=== PATIENT | female | born 2000 | race Caucasian/White ===

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

== ENCOUNTER 2020-11-09 21:08 | Emergency (ER) | payer MEDICAID, OTHER ==
[2020-11-09] MEDS ORDERED: ONDANSETRON 4 MG/2 ML VIAL IVP STA (21:20)
[2020-11-09] MEDS ORDERED: ONDANSETRON ODT 4 MG TABLET TL STA (21:20)
[2020-11-09] MEDS ORDERED: SODIUM CHLORIDE 0.9% 1,000 ML IV STA ×2 (21:20→22:14)
[2020-11-09 21:28] LABS: BASOPHILS # (AUTO) 0.1 10^3/uL (0.0-0.1); BASOPHILS % (AUTO) 0.8 %; EOSINOPHILS % (AUTO) 0.5 %; HCT - HEMATOCRIT 36.9 % (37.0-47.0); HGB - HEMOGLOBIN 12.4 g/dL (12.0-16.0); LYMPHOCYTES # (AUTO) 0.9 10^3/uL (1.5-3.5); LYMPHOCYTES % (AUTO) 14.1 %; MEAN CORPUSCULAR HEMOGLOBIN 30.1 pg (27.0-31.0); MEAN CORPUSCULAR HGB CONC 33.6 g/dL (32.0-36.0); MEAN CORPUSCULAR VOLUME 89.6 fL (81.0-99.0); MEAN PLATELET VOLUME 9.8 fL (7.9-10.8); MONOCYTES # (AUTO) 0.8 10^3/uL (0.0-1.0); MONOCYTES % (AUTO) 12.6 %; NEUTROPHILS # (AUTO) 4.4 10^3/uL (1.5-6.6); NEUTROPHILS % (AUTO) 71.7 %; PLT - PLATELET COUNT 294 10^3/uL (130-450); RED BLOOD COUNT 4.12 10^6/uL (4.20-5.40); RED CELL DISTRIBUTION WIDTH 11.7 % (12.0-15.0); WHITE BLOOD COUNT 6.1 x10^3/uL (4.8-10.8)
[2020-11-09 21:43] LABS: ALBUMIN 4.5 g/dL (3.2-5.5); ALBUMIN/GLOBULIN RATIO 1.6 (1.0-2.2); CALCIUM 9.2 mg/dL (8.5-10.3); CREATININE 1.1 mg/dL (0.4-1.0); POTASSIUM 3.3 mmol/L (3.5-5.0); TOTAL PROTEIN 7.4 g/dL (6.7-8.2)
[2020-11-09] MEDS ORDERED: METOCLOPRAMIDE 10 MG/2 ML VIAL IVP STA (22:14)
[2020-11-09] MEDS ORDERED: FAMOTIDINE 20 MG/2 ML VIAL IVP STA (22:14)
[2020-11-09 23:16] VITALS: BP 120/67
[2020-11-09] MEDS ORDERED: METOCLOPRAMIDE 10 MG TABLET PO STA (23:22)
--- NOTE | 2020-11-09 23:29 | ED Physician Documentation ---
PD HPI ABD PAIN - Stated complaint Stated Complaint: VOMITING/SUNBURN - Chief complaint Chief Complaint: Abd Pain - History obtained from History obtained from: Patient - Additional information Additional information: 20-year-old woman with No past medical history presents with nonbloody nonbilious nausea and vomiting starting today, with about 15 episodes. Patient states that she had a sunburn on Saturday and has not been drinking much since then. She felt fine but then developed the nausea today. Denies diarrhea, fever, does have chills. Review of Systems Ten Systems: 10 systems reviewed and negative Constitutional: reports: Chills, Myalgias, Fatigue. denies: Fever Cardiac: denies: Chest pain / pressure Respiratory: denies: Dyspnea, Cough GI: reports: Nausea, Vomiting. denies: Abdominal Pain, Diarrhea : denies: Dysuria PD PAST MEDICAL HISTORY - Past Surgical History Past Surgical History: Yes HEENT: Tonsil/Adenoidectomy - Present Medications Home Medications: Ambulatory Orders Medication Instructions Recorded Confirmed Cephalexin [Keflex] 500 mg PO Q6HR 7 Days capsule 10/21/14 Naphazoline HCl/Pheniramine 1 - 2 drops OP Q6HR PRN #10 ml 10/21/14 [Naphcon-A Eye Drops] Ondansetron Odt [Zofran Odt] 4 mg TL Q6H PRN #10 tablet 11/09/20 - Allergies Allergies/Adverse Reactions: Allergies Allergy/AdvReac Type Severity Reaction Status Date / Time No Known Drug Allergies Allergy Verified 11/09/20 21:14 - Social History Does the pt smoke?: No Smoking Status: Never smoker Does the pt drink ETOH?: No Does the pt have substance abuse?: No - Immunizations Immunizations are current?: Yes - POLST Patient has POLST: No PD ED PE NORMAL - Vitals Vital signs reviewed: Yes - General General: Alert and oriented X 3, No acute distress, Well developed/nourished - HEENT HEENT: Atraumatic, PERRL, EOMI - Neck Neck: Supple, no meningeal sign - Cardiac Cardiac: RRR - Respiratory Respiratory: No respiratory distress, Clear bilaterally - Abdomen Abdomen: Non tender, Non distended - Derm Derm: Normal color - Extremities Extremities: No deformity - Neuro Neuro: Alert and oriented X 3 - Psych Psych: Normal mood, Normal affect Results - Vitals Vitals: Vital Signs - 24 hr 06/30/21 06/30/21 06/30/21 21:11 21:27 23:16 Temperature 36.1 C L 37.2 C Heart Rate 76 95 80 Respiratory 18 21 16 Rate Blood Pressure 121/62 127/49 L 120/67 O2 Saturation 100 100 100 Oxygen O2 Source Room air - Labs Labs: Laboratory Tests 11/09/20 11/09/20 21:24 21:24 WBC 6.1 RBC 4.12 L Hgb 12.4 Hct 36.9 L MCV 89.6 MCH 30.1 MCHC 33.6 RDW 11.7 L Plt Count 294 MPV 9.8 Neut # (Auto) 4.4 Lymph # (Auto) 0.9 L [place] # (Auto) 0.8 Eos # (Auto) 0.0 Baso # (Auto) 0.1 Absolute Nucleated RBC 0.00 Nucleated RBC % 0.0 Sodium 135 Potassium 3.3 L Chloride 103 Carbon Dioxide 19 L Anion Gap 13.0 BUN 8 Creatinine 1.1 H Estimated GFR (MDRD) 63 L Glucose 115 H Calcium 9.2 Total Bilirubin 1.0 AST 25 ALT 27 Alkaline Phosphatase 56 Total Protein 7.4 Albumin 4.5 Globulin 2.9 Albumin/Globulin Ratio 1.6 Lipase 27 PD MEDICAL DECISION MAKING - ED course ED course: Patient is feeling better after symptomatic care. Covid swab sent given that she and her significant other unvaccinated against COVID-19. Education given and return precautions given. Patient will follow up with her primary doctor. Departure - Departure Disposition: 01 Home, Self Care Clinical Impression: Nausea and vomiting, Sunburn Condition: Stable Instructions: ED Nausea Vomiting Prescriptions: Ondansetron Odt [Zofran Odt] 4 mg TL Q6H PRN #10 tablet PRN Reason: Nausea / Vomiting Comments: You were seen in the emergency department for nausea and vomiting. Your labs did not show any significant abnormalities. You should make sure that you get lots of rest, try to hydrate with water and Pedialyte, and fill your prescription. Return to the emergency department if you have any new or worsening symptoms or other concerns. Follow-up with your primary doctor. Discharge Date/Time: 11/09/20 23:36
== END 2020-11-09 23:36 | disposition home or self-care (01) ==
LOC: ED 21:08
DX: R11.2 Nausea with vomiting, unspecified (principal); L55.9 Sunburn, unspecified; Z20.822 Contact with and (suspected) exposure to COVID-19
CPT/HCPCS: 36415; 80053; 83690; 85025; 87635; 96361; 96374; 96375; 99283; A9270; J2765

== ENCOUNTER 2021-02-17 08:16 | Emergency (ER) | payer MEDICAID ==
[2021-02-17] MEDS ORDERED: SODIUM CHLORIDE 0.9% 1,000 ML IV STA (08:33)
[2021-02-17] MEDS ORDERED: PROMETHAZINE INJ 25 MG in SODIUM CHLORIDE 0.9% 50 ML IV STA (08:33)
[2021-02-17 08:46] LABS: BASOPHILS % (AUTO) 0.7 %; EOSINOPHILS % (AUTO) 0.5 %; HCT - HEMATOCRIT 42.4 % (37.0-47.0); LYMPHOCYTES # (AUTO) 1.3 10^3/uL (1.5-3.5); LYMPHOCYTES % (AUTO) 23.4 %; MEAN CORPUSCULAR HEMOGLOBIN 30.2 pg (27.0-31.0); MEAN CORPUSCULAR VOLUME 91.6 fL (81.0-99.0); MEAN PLATELET VOLUME 10.2 fL (7.9-10.8); MONOCYTES # (AUTO) 0.3 10^3/uL (0.0-1.0); MONOCYTES % (AUTO) 5.5 %; NEUTROPHILS % (AUTO) 69.7 %; PLT - PLATELET COUNT 301 10^3/uL (130-450); RED BLOOD COUNT 4.63 10^6/uL (4.20-5.40); RED CELL DISTRIBUTION WIDTH 11.6 % (12.0-15.0); WHITE BLOOD COUNT 5.7 x10^3/uL (4.8-10.8)
[2021-02-17 08:56] LABS: ALBUMIN 4.8 g/dL (3.2-5.5); ALBUMIN/GLOBULIN RATIO 1.6 (1.0-2.2); BILIRUBIN,TOTAL 0.6 mg/dL (0.2-1.0); CALCIUM 9.7 mg/dL (8.5-10.3); CREATININE 1.1 mg/dL (0.4-1.0); POTASSIUM 3.5 mmol/L (3.5-5.0); TOTAL PROTEIN 7.8 g/dL (6.7-8.2)
--- NOTE | 2021-02-17 09:04 | ED Physician Documentation ---
PD HPI ABD PAIN - Stated complaint Stated Complaint: VOMITING - Chief complaint Chief Complaint: Abd Pain - History obtained from History obtained from: Patient - Additional information Additional information: 20-year-old woman had her wisdom teeth out 5 days ago. Subsequently was on hydrocodone and subsequently oxycodone both of which she has not had in 4 days and both of which were making her nauseous. She woke up abruptly at 3 AM this morning with epigastric pain and severe vomiting. No headache. She has been constipated. She does not think is likely. She does use marijuana of ten, but she says not daily. Review of Systems Ten Systems: 10 systems reviewed and negative Constitutional: reports: Chills, Sweats Nose: denies: Rhinorrhea / runny nose GI: reports: Abdominal Pain, Nausea, Vomiting, Constipation PD PAST MEDICAL HISTORY - Past Surgical History Past Surgical History: Yes HEENT: Tonsil/Adenoidectomy - Present Medications Home Medications: Ambulatory Orders Medication Instructions Recorded Confirmed Cephalexin [Keflex] 500 mg PO Q6HR 7 Days capsule 10/21/14 Naphazoline HCl/Pheniramine 1 - 2 drops OP Q6HR PRN #10 ml 10/21/14 [Naphcon-A Eye Drops] Ondansetron Odt [Zofran Odt] 4 mg TL Q6H PRN #10 tablet 11/09/20 Metoclopramide [Reglan] 10 mg PO Q6H PRN #20 tablet 02/17/21 Ondansetron Odt [Zofran] 4 mg TL Q6H PRN #10 tablet 02/17/21 Promethazine Supp [Phenergan Supp] 25 mg DC Q6H PRN #20 supp 02/17/21 - Allergies Allergies/Adverse Reactions: Allergies Allergy/AdvReac Type Severity Reaction Status Date / Time No Known Drug Allergies Allergy Verified 02/17/21 08:20 - Social History Does the pt smoke?: No Smoking Status: Never smoker Does the pt drink ETOH?: No Does the pt have substance abuse?: No - Immunizations Immunizations are current?: Yes - POLST Patient has POLST: No PD ED PE NORMAL - Vitals Vital signs reviewed: Yes - General General: Alert and oriented X 3, Other (retching, no vomiting) - HEENT HEENT: Pharynx benign - Neck Neck: Supple, no meningeal sign, No bony TTP - Cardiac Cardiac: RRR, No murmur - Respiratory Respiratory: No respiratory distress, Clear bilaterally - Abdomen Abdomen: Normal bowel sounds, Soft, Non tender - Back Back: No CVA TTP, No spinal TTP - Derm Derm: Normal color, Warm and dry - Neuro Neuro: Alert and oriented X 3, Normal speech Results - Vitals Vitals: Vital Signs - 24 hr 02/17/21 02/17/21 08:20 09:14 Temperature 36.5 C Heart Rate 76 73 Respiratory 16 15 Rate Blood Pressure 150/90 H 135/70 H O2 Saturation 100 100 Oxygen O2 Source Room air - Labs Labs: Laboratory Tests 02/17/21 02/17/21 02/17/21 08:30 08:30 12:46 WBC 5.7 RBC 4.63 Hgb 14.0 Hct 42.4 MCV 91.6 MCH 30.2 MCHC 33.0 RDW 11.6 L Plt Count 301 MPV 10.2 Neut # (Auto) 4.0 Lymph # (Auto) 1.3 L [place] # (Auto) 0.3 Eos # (Auto) 0.0 Baso # (Auto) 0.0 Absolute Nucleated RBC 0.00 Nucleated RBC % 0.0 Sodium 141 Potassium 3.5 Chloride 104 Carbon Dioxide 22 Anion Gap 15.0 H BUN 12 Creatinine 1.1 H Estimated GFR (MDRD) 63 L Glucose 135 H Calcium 9.7 Total Bilirubin 0.6 AST 23 ALT 31 Alkaline Phosphatase 46 Total Protein 7.8 Albumin 4.8 Globulin 3.0 Albumin/Globulin Ratio 1.6 Lipase 30 Urine Color YELLOW Urine Clarity SL. CLOUDY Urine pH 8.5 H Ur Specific [place] 1.020 Urine Protein NEGATIVE Urine Glucose (UA) NEGATIVE Urine Ketones >=80 H Urine Occult Blood LARGE H Urine Nitrite NEGATIVE Urine Bilirubin NEGATIVE Urine Urobilinogen 0.2 (NORMAL) Ur Leukocyte Esterase NEGATIVE Urine RBC 11-25 H Urine WBC 0-3 Ur Squamous Epith Cells MOD Squamous H Urine Bacteria Few Ur Microscopic Review INDICATED Urine Culture Comments NOT INDICATED Urine HCG, Qual NEGATIVE Urine Opiates Screen NEGATIVE Ur Oxycodone Screen NEGATIVE Urine Methadone Screen NEGATIVE Ur Propoxyphene Screen NEGATIVE Ur Barbiturates Screen NEGATIVE Ur Tricyclics Screen NEGATIVE Ur Phencyclidine Scrn NEGATIVE Ur Amphetamine Screen NEGATIVE U Methamphetamines Scrn NEGATIVE U Benzodiazepines Scrn NEGATIVE Urine Cocaine Screen NEGATIVE U Cannabinoids Screen POSITIVE H PD MEDICAL DECISION MAKING - ED course ED course: 20-year-old woman presents with severe retching starting early this morning with a benign exam otherwise. It was difficult to control her nausea here and she received a total of 4 doses of antiemetics and was barely able to keep liquids down. I recommended inpatient observation and she declined preferring to go home, although I have my doubts as to the success of this and this was shared with her. The etiology of her vomiting is not completely clear. Initially told us use marijuana about once a week but during subsequent queries, each time we queried the use became more frequent. That said she has not had this before and has not noted any relief with heat. She has not had pain medicine in a few days and her dental pain is not bad, so it is unclear if this was related to her recent dental procedure and/or analgesics for same. On repeat evaluation prior to discharge her abdominal exam remained benign. She has no headache to suggest an intracranial emergency. Departure - Departure Disposition: 01 Home, Self Care Clinical Impression: Vomiting Condition: Good Record reviewed to determine appropriate education?: Yes Instructions: ED Nausea Vomiting Prescriptions: Promethazine Supp [Phenergan Supp] 25 mg DC Q6H PRN #20 supp PRN Reason: Nausea / Vomiting Metoclopramide [Reglan] 10 mg PO Q6H PRN #20 tablet PRN Reason: nausea or headache Ondansetron Odt [Zofran] 4 mg TL Q6H PRN #10 tablet PRN Reason: Nausea / Vomiting Comments: As discussed, I have recommended admission for you today given how hard it was to get a hold of your vomiting, you have declined and we will try to send you home with nausea medicines but return anytime if it is not working out.
[2021-02-17] MEDS ORDERED: HALOPERIDOL 5 MG/ML VIAL IVP ONE (09:30)
[2021-02-17] MEDS ORDERED: ONDANSETRON 4 MG/2 ML VIAL IVP STA (10:07)
[2021-02-17 10:15] VITALS: BP 135/70
[2021-02-17] MEDS ORDERED: METOCLOPRAMIDE 10 MG/2 ML VIAL IVP STA (11:29)
[2021-02-17 12:51] LABS: MUDS CUTOFF CONCENTRATIONS CUTOFF CONC BELOW:
[2021-02-17 12:56] LABS: BILIRUBIN,URINE NEGATIVE (NEGATIVE); GLUCOSE, URINE (UA) NEGATIVE (NEGATIVE); KETONES,URINE (UA) >=80 mg/dL (NEGATIVE); LEUKOCYTE ESTERASE, URINE NEGATIVE (NEGATIVE); NITRITE,URINE NEGATIVE (NEGATIVE); OCCULT BLOOD,URINE LARGE (NEGATIVE); PH,URINE 8.5 PH (5.0-7.5); PROTEIN,URINE NEGATIVE (NEGATIVE); UROBILINOGEN,URINE 0.2 (NORMAL) E.U./dL (NORMAL)
[2021-02-17 12:57] LABS: CLARITY,URINE SL. CLOUDY (CLEAR); HCG UR QUAL NEGATIVE
[2021-02-17 13:03] LABS: BACTERIA,URINE Few /HPF (None Seen); SQUAMOUS EPITHELIAL CELL,UR MOD Squamous (<= Few); WBC,URINE 0-3 /HPF (0-5)
[2021-02-17 13:05] LABS: AMPHETAMINE SCREEN,URINE NEGATIVE (NEGATIVE); BARBITURATE SCREEN,UR NEGATIVE (NEGATIVE); BENZODIAZEPINES SCREEN, URINE NEGATIVE (NEGATIVE); COCAINE SCREEN URINE NEGATIVE (NEGATIVE); METHADONE SCREEN, URINE NEGATIVE (NEGATIVE); METHAMPHETAMINES SCREEN, URINE NEGATIVE (NEGATIVE); OPIATE SCREEN, URINE NEGATIVE (NEGATIVE); OXYCODONE SCREEN, URINE NEGATIVE (NEGATIVE); PROPOXYPHENE SCREEN, URINE NEGATIVE (NEGATIVE); THC CANNABINOID SCREEN, URINE POSITIVE (NEGATIVE); TRICYCLIC ANTIDEPRESSANT,URINE NEGATIVE (NEGATIVE)
== END 2021-02-17 13:23 | disposition home or self-care (01) ==
LOC: ED 08:16
DX: R11.2 Nausea with vomiting, unspecified (principal); R10.13 Epigastric pain; Z98.818 Other dental procedure status
CPT/HCPCS: 36415; 80053; 80306; 81001; 81025; 83690; 85025; 96365; 96375; 99283; 99284; J2765; J7040; 81003; 87086

== ENCOUNTER 2021-10-05 16:17 | Outpatient (CLI) | payer MEDICAID ==
[2021-10-05 20:44] LABS: BASOPHILS % (AUTO) 0.3 %; EOSINOPHILS % (AUTO) 0.6 %; HCT - HEMATOCRIT 42.8 % (37.0-47.0); HGB - HEMOGLOBIN 14.1 g/dL (12.0-16.0); LYMPHOCYTES # (AUTO) 1.2 10^3/uL (1.5-3.5); LYMPHOCYTES % (AUTO) 37.4 %; MEAN CORPUSCULAR HEMOGLOBIN 30.6 pg (27.0-31.0); MEAN CORPUSCULAR HGB CONC 32.9 g/dL (32.0-36.0); MEAN CORPUSCULAR VOLUME 92.8 fL (81.0-99.0); MEAN PLATELET VOLUME 10.4 fL (7.9-10.8); MONOCYTES # (AUTO) 0.3 10^3/uL (0.0-1.0); MONOCYTES % (AUTO) 9.5 %; NEUTROPHILS # (AUTO) 1.7 10^3/uL (1.5-6.6); NEUTROPHILS % (AUTO) 52.2 %; NRBC ABSOLUTE COUNT (AUTO) 0.02 x10^3/uL; NUCLEATED RED BLOOD CELLS AUTO 0.6 /100WBC; PLT - PLATELET COUNT 267 10^3/uL (130-450); RED BLOOD COUNT 4.61 10^6/uL (4.20-5.40); RED CELL DISTRIBUTION WIDTH 12.2 % (12.0-15.0); WHITE BLOOD COUNT 3.3 x10^3/uL (4.8-10.8)
[2021-10-07 05:12] LABS: HBsAG SCREEN Negative (Negative); HCV AB 0.1 s/co ratio (0.0-0.9); HIV SCREEN 4TH GENERATION Non Reactive (Non Reactive); RPR Non Reactive (Non Reactive)
[2021-10-07 21:07] LABS: VARICELLA-ZOSTER AB IGM <0.91 index (0.00-0.90)
== END 2021-10-05 16:18 | disposition home or self-care (01) ==
LOC: LAB.N 16:17
PROVIDERS: ATTEND Nurse Practitioner Obstetrics & Gynecology
DX: Z36.89 Encounter for other specified antenatal screening (principal)
CPT/HCPCS: 36415; 85025; 86592; 86762; 86787; 86803; 86850; 86900; 86901; 87340; 87389

== ENCOUNTER 2021-11-29 07:00 | Outpatient (CLI) | payer MEDICAID ==
--- NOTE | 2021-11-29 09:44 | Ultrasound Report ---
PROCEDURE: OB Detailed Eval INDICATIONS: SUPERVISION OF OUTSIDE/PRIOR DATING DATA: Last menstrual period (LMP): Unknown. LMP-based estimated date of delivery (FRANCISCO): Unknown. First dating scan (date and location): 09/27/2021. Estimated date of delivery (FRANCISCO) from first dating scan: 04/17/2022. The below data below was generated using the ultrasound FRANCISCO of 04/17/2022 TECHNIQUE: Real-time scanning was performed of the fetus, with image documentation and biometric measurements. COMPARISON: None. FINDINGS: General: A single living intrauterine gestation is present. Presentation: Breech Placenta: Placental position is anterior, without previa. Amniotic fluid index: 12.3 cm, normal for gestational age. heart rate: 157 beats per minute. Maternal cervical canal: 4.4 cm long; normal length is 2.5 cm or more. biometrics: Biparietal diameter: 4.8 cm. 20 weeks 3 days. Head circumference: 17.5 cm. 20 weeks 0 days. Abdominal circumference: 14.8 cm. 20 weeks 1 day. Femur length: 3.2 cm. 19 weeks 6 days. Estimated gestational age from initial scan: 20 weeks 1 day. Composite gestational age from present scan: 20 weeks 1 day Estimated weight and percentile: 325 g. 36th percentile. Measurement variability in biometric dating: +/- 10 days from 12-20 weeks gestation, +/- 2 weeks from 20-30 weeks gestation, +/- 3 weeks at 30 weeks gestation or later. Anatomic survey: Neuro: Ventricles are normal at less than 10 mm. Cisterna magna is normal at 3-11 mm. Cerebellum i s normal in size and morphology. Nuchal skin fold: Normal at less than 6 mm between 14 and 20 weeks gestational age. Face: Nose and lips, facial profile are normal. Spine: No evidence for spina bifida. Heart: 4-chambered heart is present, with normal ventricular outflow tracts. Diaphragm: Diaphragm is intact. Stomach: Left-sided stomach is present. Kidneys: No hydronephrosis. Normal is less than 5 mm in 2nd trimester, less than 7 mm in 3rd trimester. Cord: 3 vessel cord has orthotopic insertion. Bladder: Normal in size. Extremities: All 4 extremities are visualized. IMPRESSION: 1. Estimated gestational age from initial scan 20 weeks 1 day. 2. All anatomy was visualized and appears normal. 3. Estimated weight 325 g, 36th percentile. 4. CHRIS 12.3 cm. Reviewed by: Rogelio Weiss on 11/29/2021 9:43 AM PDT Approved by: Rogelio Weiss on 11/29/2021 9:43 AM PDT Station ID: [id number]
== END 2021-11-29 07:01 | disposition home or self-care (01) ==
LOC: DI 07:00
PROVIDERS: ATTEND Nurse Practitioner Obstetrics & Gynecology
DX: Z34.00 Encounter for supervision of normal first pregnancy, unspecified trimester (principal); Z36.89 Encounter for other specified antenatal screening

== ENCOUNTER 2022-04-07 01:33 | Inpatient (IN) | payer MEDICAID ==
[2022-04-07] MEDS ORDERED: LACTATED RINGERS 0 ML ONE (01:50)
[2022-04-07] MEDS ORDERED: miSOPROStoL 200 MCG TABLET ONE (01:50)
[2022-04-07] MEDS ORDERED: TRANEXAMIC ACID IN NACL 1,000 MG/100 ML BAG IV ONE (01:50)
[2022-04-07] MEDS ORDERED: METHYLERGONOVINE 0.2 MG/ML VIAL ONE (02:05)
[2022-04-07] MEDS ORDERED: CARBOPROST TROMETHAMINE 250 MCG/ML AMP IM ONE (02:05)
[2022-04-07] MEDS ORDERED: OXYTOCIN 10 UNIT/ML VIAL IM PRN (02:20)
[2022-04-07] MEDS ORDERED: OXYTOCIN/SODIUM CHLORIDE 500 ML IV PRN (02:20)
[2022-04-07] MEDS ORDERED: NIFEdipine 10 MG CAPSULE PO PRN (02:20)
[2022-04-07] MEDS ORDERED: miSOPROStoL 200 MCG TABLET BC PRN (02:20)
[2022-04-07] MEDS ORDERED: lidocaine 1% 20 ML MDV ID PRN (02:20)
[2022-04-07] MEDS ORDERED: TRANEXAMIC ACID IN NACL 1,000 MG/100 ML BAG IV PRN (02:20)
[2022-04-07] MEDS ORDERED: SODIUM CHLORIDE FLUSH 0.9% 10 ML SYRINGE IVP PRN (02:20)
[2022-04-07] MEDS ORDERED: LABETALOL 20 MG/4 ML SYRINGE IVP PRN ×3 (02:20)
[2022-04-07] MEDS ORDERED: fentaNYL 100 MCG/2 ML VIAL IVP PRN (02:20)
[2022-04-07] MEDS ORDERED: CARBOPROST TROMETHAMINE 250 MCG/ML AMP IM PRN (02:20)
[2022-04-07] MEDS ORDERED: TERBUTALINE 1 MG/ML VIAL SUBQ PRN (02:20)
[2022-04-07] MEDS ORDERED: hydrALAZINE INJ 20 MG/ML VIAL IVP PRN ×2 (02:20)
[2022-04-07] MEDS ORDERED: miSOPROStoL 200 MCG TABLET PR PRN (02:20)
[2022-04-07] MEDS ORDERED: METHYLERGONOVINE 0.2 MG/ML VIAL IM PRN (02:20)
[2022-04-07] MEDS ORDERED: HYDROCORTISONE 1% CREAM 28 GM TUBE PR PRN (02:42)
[2022-04-07] MEDS ORDERED: WITCH HAZEL/GLYCERIN 1 PAD TOP PRN (02:42)
--- NOTE | 2022-04-07 02:54 | DELIVERY NOTE ---
Delivery Note - Labor Labor: positive: Spontaneous - Delivery Method Delivery Method: positive: Spontaneous vaginal delivery - Presentation Presentation: positive: Vertex, EVANS - left occiput anterior - Nuchal Cord Nuchal Cord: positive: None - Amniotic Fluid Description Amniotic Fluid Description: positive: Clear - Episiotomy Type Episiotomy Type: positive: None - Laceration Laceration: positive: 1st degree, Vaginal - Delivery Outcome Delivery Outcome: positive: Livebirth - [place]: positive: Placed in direct skin contact with mother, Bulb syringe, Stimulated, Warmed, [place] used sex: positive: Female - Cord Cord: positive: 3 vessels - Placenta Placenta: positive: Intact, Spontaneous - Estimated Blood Loss Estimated Blood Loss (in cc): 250 - Post Delivery Events Post Delivery Events: positive: No post delivery events - Delivery Comments (Free Text/Narrative) Delivery Comments (Free Text/Narrative): Labor: This 22yo @ 38.4wks gestation by 11wk U/S presented on 04/06/2022 with c/o contractions. She reported onset of contractions at 2000 on 04/06/2022 with increase in frequency and intensity throughout the night. She reports SROM at home in her bathtub at 0100 on 04/07/2022. Upon arrival to [facility] her cervix was noted to be c/c/0 and vertex with grossly ruptured membranes at 0137 with onset of pushing at 0150. FHR pattern demonstrated Category II pattern throughout the brief time she was present on the unit and was overall reassuring. Normal labor course. : Normal SVB of viable female on 04/07/2022 @ 0212. No nuchal cord. The was placed on maternal abdomen, stimulated, dried, and placed skin to skin. Apgars were 9/9 at 1 and 5 minutes respectively. The umbilical cord was allowed to stop pulsating at which time it was doubly clamped by CNM and cut by FOB. 3VC. Cord blood was obtained. Fundal massage and gentle cord traction applied for active management of the third stage. Placenta delivered spontaneously and intact at 0222. EBL 250mL. Fourth stage: Uterine fundus firm and there is no excessive bleeding. The perineum, vagina, and cervix were inspected and noted to have 1st degree vaginal laceration which was hemostatic and left unrepaired. initiated. Family bonding well. Both mother and baby were left in stable condition.
[2022-04-07] MEDS ORDERED: SODIUM CHLORIDE FLUSH 0.9% 10 ML SYRINGE IVP SCH (03:00)
[2022-04-07] MEDS: ACETAMINOPHEN 500 MG TABLET PO SCH ×3 (03:06→20:38)
[2022-04-07] MEDS: IBUPROFEN 800 MG TABLET PO SCH ×3 (03:06→18:05)
--- NOTE | 2022-04-07 03:10 | HISTORY & PHYSICAL EXAMINATION ---
Admit History - Visit Reason Visit Reason: Contractions, Membranes rupture - : 1 Parity: 0 Premature: 0 Ectopic: 0 : 0 Care: positive: Hillary [facility]wiferdeepali Risk/History: positive: None Complications This : positive: Treated for GBS/UTI Smoking Status: Never smoker - Mother's Labs Mother's Blood Type: positive: O Mother's RH: positive: Positive GBS: positive: Group B Strep Positive Rubella Status: positive: Immune Meds/Allgy - Home Medications Home Medications: Ambulatory Orders Medication Instructions Recorded Confirmed Cephalexin [Keflex] 500 mg PO Q6HR 7 Days capsule 10/21/14 Naphazoline HCl/Pheniramine 1 - 2 drops OP Q6HR PRN #10 ml 10/21/14 [Naphcon-A Eye Drops] Ondansetron Odt [Zofran Odt] 4 mg TL Q6H PRN #10 tablet 11/09/20 Metoclopramide [Reglan] 10 mg PO Q6H PRN #20 tablet 02/17/21 Ondansetron Odt [Zofran] 4 mg TL Q6H PRN #10 tablet 02/17/21 Promethazine Supp [Phenergan Supp] 25 mg IN Q6H PRN #20 supp 02/17/21 - Allergies Allergies/Adverse Reactions: Allergies Allergy/AdvReac Type Severity Reaction Status Date / Time No Known Drug Allergies Allergy Verified 02/17/21 08:20 Review of Systems - Constitutional Constitutional: denies: Fatigue, Fever, Chills, Malaise - Eyes Eyes: denies: Blurred vision, Spots in vision, Dipolpia - Cardiovascular Cariovascular: denies: Irregular heart rate, Palpitations, Chest pain, Edema - Respiratory Respiratory: denies: Cough, Wheezing, SOB at rest - Gastrointestinal Gastrointestinal: reports: Vomiting. denies: Constipation, Diarrhea, Nausea - Genitourinary Genitourinary: denies: Dysuria - Integumentary Integumentary: denies: Rash, Pruritis - Neurological Neurological: denies: Headache - Psychiatric Psychiatric: denies: Depression, Anxiety Physical - Abdominal Exam Contraction Frequency (min/apart): 2-3 Contraction Intensity: positive: Strong Uterine Resting Tone: positive: Soft - Monitoring Heart Rate Baseline: 140 Strip Review: positive: Category II - Presentation Presentation: positive: Vertex - Vaginal Exam Membranes: positive: Membranes ruptured Dilation (in cm): complete Effacement (%): complete Station: positive: 0 - Speculum Exam Speculum Exam Performed: positive: No Findings: positive: Gross leak Plan for Labor - Plan For Labor I expect patient to be DC'd or transferred within 96 hours.: Yes Plan for Labor: HPI: This 22yo @ 38.4wks gestation by 11wk U/S and unknown LMP presented on 04/07/2022 at approximately 0130 with c/o contractions and rupture of membranes at home 30 minutes prior. Cervix was noted to be c/c/0 and vertex with grossly ruptured membranes. She was found to contract every 2-3 minutes with soft resting tone. She reports leakage of fluid was clear. She experienced an episode of vomiting at 2300 but denies persistent nausea. She reports a small amount of bloody discharge at 0030 but otherwise denies vaginal bleeding and reports the leakage of fluid she experienced at 0100 was clear. She has been a patient of [facility] for the duration of her which has remained uncomplicated with the exception of GBS positive on urine in first trimester. She will be admitted for expectant management. She is supported by her partner Hugh, her [id number] Julio, and her [id number] Kaitlin. Dating criteria: LMP - unknown Initial U/S @ 11.1wks dates Serial exams - agree communication analyst Hx: Term NSVB x 0. SAB x0. Has never had a pap smear before. Medical Hx: No significant Surgical Hx: tonsillectomy 2004; Exploratory knee surgery 2014 Family Hx: Breast cancer - mother, MGM; HTN - PGF, MGF; stroke - MGF, MGM Meds: PNV Allergies: None known drug allergies. Seasonal allergies. Social: Single, lives with partner Hugh. 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 No tobacco, ETOH or recreational drug use. Caffeine intake is minimal. course: O positive, antibody negative Rubella immune; varicella non-immune Initial U/S @ 11.1wks dates Genetic screening - declined FAS WNL. Anterior placenta, no previa. Size c/w dating. 3VC. Glucola 79 Tdap 02/14/2022 COVID vaccine - declined Influenza vaccine - declined GBS POSITIVE Physical exam: Normocephalic, atraumatic Heart RRR w/o M/G/R Lungs CTAB Abdomen gravid, soft, nontender FHR baseline 140s, moderate variability, + accels, intermittent early decels with occasional late deceleration following contractions - overall reassuring Contractions palpate strong every 2-3 minutes with soft resting tone SVE c/c/0, vertex. Grossly rupture membranes. Bilateral LE's no edema. Assessment: 22yo @ 38.4wks gestation by 11.1wk U/S Active labor GBS positive FHR Category II Plan: Admit for expectant management. Continuous monitoring. Nitrous oxide PRN. Anticipate .
[2022-04-07] MEDS: DOCUSATE SODIUM 100 MG CAPSULE PO SCH ×2 (09:52→20:38)
--- NOTE | 2022-04-07 13:14 | PROVIDER PROGRESS NOTE ---
Subjective - Subjective Subjective: S: Bonding well with baby. Having difficulty with nursing as baby is sleepy at the breast. She latched for 15 minutes early this morning but prior to that she has just hand expressed into a teaspoon which has worked. They have tried a nipple shield but still baby seems tired at the breast. They are working with nursing staff today and will do some pumping for stimulating and teaspoon or finger feed. Bleeding is light. Pain well controlled with oral medications. She is urinating without difficulty. Her mom and sister are supportive at the bedside. O: Vital signs WNL. Heart RRR w/o M/G/R, lungs CTAB, abdomen soft and nontender with fundus firm at U, perineum intact, light lochia rubra, bilateral LE's no edema. Mood is good. A: 22yo -->P1 day of delivery s/p TSVD viable female infant normal recovery P: Continue routine pp care and medications. Special attention to today. Evaluate for discharge home tomorrow. Objective - Vital Signs/Intake & Output Vital Signs: Vital Signs x48h Temp Pulse Resp BP Pulse Ox 04/07/22 08:00 36.6 C 55 L 16 119/54 L 99 04/07/22 06:00 36.7 C 55 L 16 133/80 H 98 04/07/22 05:45 37.3 C
[2022-04-08] MEDS: IBUPROFEN 800 MG TABLET PO SCH ×4 (00:14→23:57)
[2022-04-08] MEDS: DOCUSATE SODIUM 100 MG CAPSULE PO SCH ×2 (09:27→23:57)
[2022-04-08] MEDS: ACETAMINOPHEN 500 MG TABLET PO SCH ×2 (09:27→18:26)
--- NOTE | 2022-04-08 09:57 | PROVIDER PROGRESS NOTE ---
Subjective - Subjective Subjective: S: Bonding well with her baby. Continues to struggle with feedings as baby is very sleepy at the breast. She has been pumping and getting an adequate amount of colostrum which she has been syringe or finger feeding baby. She reports her bleeding is decreased and is light. Her pain is well controlled with oral medications. She is tired but states her mood is good. She has several family members including her partner Hugh and her mom at the bedside. O: Vital signs WNL. Heart RRR w/o M/G/R, lungs CTAB, abdomen soft and nontender with fundus firm at U-1, perineum intact with mild edema, light lochia rubra, bilateral LE's no edema A: 22yo -->P1 PPD#1 s/p TSVD viable female Normal recovery P: Continue routine pp care and medications. Continue to work closely with nursing staff on today. Anticipate discharge home tomorrow. Pt verbalized understanding and agrees to above plan. She denies further questions or concerns at this time. Objective - Vital Signs/Intake & Output Vital Signs: Vital Signs x48h Temp Pulse Resp BP Pulse Ox 04/08/22 04:29 36.7 C 66 16 125/66 100
[2022-04-09] MEDS: ACETAMINOPHEN 500 MG TABLET PO SCH ×2 (02:49→11:04)
[2022-04-09] MEDS: IBUPROFEN 800 MG TABLET PO SCH (07:20)
--- NOTE | 2022-04-09 09:51 | Discharge Plan ---
Discharge Plan Problem Reviewed?: Yes Disposition: Home, Self Care Condition: Good Diet: Regular Activity Restrictions: No Restrictions Shower Restrictions: No Driving Restrictions: No Weight Bearing: Full Weight Instruction Topics: Vaginal After No Smoking: If you smoke, Please STOP! Call for help. Follow-up with: Stella Langley CNM, ARNP [Provider Admit Priv/Credential] -
--- NOTE | 2022-04-09 10:18 | DISCHARGE SUMMARY ---
Discharge Summary Condition at Discharge: Good Discharge Disposition: 01 Home, Self Care - HOSPITAL COURSE Hospital Course: Date of Admission: 04/07/2022 Date of Discharge: 04/09/2022 Diagnosis on Admission: 1. 22yo @ 38.4wks gestation by 11.1wk U/S 2. Active labor 3. GBS positive 4. FHR Category II Diagnosis on Discharge: 1. 22yo PPD#2 s/p TSVD viable female infant 2. 3. Normal recovery Brief History: She is a patient of [facility] who presented on 04/07/2022 in active labor. Cervix was c/c/+1 with spontaneous urge to push. She progressed to spontaneously deliver a viable female infant on 04/07/2022 at 0212. Apgars were 9/9 at 1 and 5 minutes respectively. Minor 1st degree vaginal laceration hemostatic and repaired. EBL 250mL. She was unable to be adequately treated for GBS secondary to her advanced dilation upon arrival. She has been doing well in her course. She is ambulating and tolerating a regular diet. She is urinating without difficulty and her lochia is normal. Her pain is well controlled with oral medications. She will be discharged home today on day #2 with instructions to continue taking her vitamin while and to continue taking ibuprofen and tylenol over the counter as needed for pain management. She intends to follow up with myself at [facility] in 1 week for routine visit or sooner if needed. She has been given precautions to call if she has any worsening fevers, chills, abdominal pain, increased vaginal bleeding or foul smelling vaginal lochia. Physical Exam: Normocephalic, atraumatic, heart RRR w/o M/G/R, lungs CTAB, abdomen soft and nontender with fundus firm at U-2, perineum intact, light lochia rubra, bilateral LE's trace edema. Mood is good. - ALLERGIES Allergies/Adverse Reactions: Allergies Allergy/AdvReac Type Severity Reaction Status Date / Time No Known Drug Allergies Allergy Verified 02/17/21 08:20 - MEDICATIONS Home Medications: Ambulatory Orders Medication Instructions Recorded Confirmed Cephalexin [Keflex] 500 mg PO Q6HR 7 Days capsule 10/21/14 Naphazoline HCl/Pheniramine 1 - 2 drops OP Q6HR PRN #10 ml 10/21/14 [Naphcon-A Eye Drops] Ondansetron Odt [Zofran Odt] 4 mg TL Q6H PRN #10 tablet 11/09/20 Metoclopramide [Reglan] 10 mg PO Q6H PRN #20 tablet 02/17/21 Ondansetron Odt [Zofran] 4 mg TL Q6H PRN #10 tablet 02/17/21 Promethazine Supp [Phenergan Supp] 25 mg TX Q6H PRN #20 supp 02/17/21
[2022-04-09] MEDS ORDERED: VARICELLA VACCINE LIVE/PF 1,350 UNIT/0.5 ML VIAL SUBQ ONE (10:53)
[2022-04-09 10:56] VITALS: BP 122/54
[2022-04-09] MEDS: DOCUSATE SODIUM 100 MG CAPSULE PO SCH (11:04)
--- NOTE | 2022-04-09 13:11 | Labor Flowsheet ---
Labor Flowsheet Datetime Report Generated by CPN: 04/09/2022 13:11 Datetime: 04/09/2022 07:45 VITAL SIGNS NBP Sys/Natasha/Mean (mmHg): 125 : 59 : 75 Pulse: 48 COMMUNICATION LaborFlag: Labor Datetime: 04/07/2022 11:27 VAGINAL EXAM Membranes Ruptured Date/Time: 04/06/2022 01:00 Membranes Rupture Method: Spontaneous Amniotic Fluid Color: Bloody Amniotic Fluid Amount: Moderate
== END 2022-04-09 13:00 | disposition home or self-care (01) | DRG 807 ==
LOC: WFO 01:33 → FBP 01:36 → WFO 02:19 → FBP 02:20
PROVIDERS: ADMIT Nurse Practitioner Obstetrics & Gynecology; ATTEND Nurse Practitioner Obstetrics & Gynecology
PROC: 10E0XZZ Delivery of Products of Conception, External Approach (ICD-10-PCS; principal; 2022-04-07)
DX: O99.824 Streptococcus B carrier state complicating childbirth (principal); Z37.0 Single live birth; O70.0 First degree perineal laceration during delivery; Z3A.38 38 weeks gestation of pregnancy
CPT/HCPCS: A9270 ×10